=== PATIENT | male | born 1945 | race Caucasian/White ===

== ENCOUNTER 2022-08-23 15:46 | Inpatient (IN) | payer OTHER ==
[~2022-08-23] VITALS: Ht 193 cm; Wt 109.1 kg
[2022-08-23 16:31] LABS: BASOPHILS # (AUTO) 0.1 X10'3 (0-0.2); BASOPHILS % (AUTO) 1.2 % (0-1); EOSINOPHILS # (AUTO) 0.3 X10'3 (0-0.9); EOSINOPHILS % (AUTO) 4.5 % (0-6); HEMOGLOBIN 12.2 g/dl (14.0-17.9); LYMPHOCYTES # (AUTO) 1.6 X10'3 (1.1-4.8); LYMPHOCYTES % (AUTO) 23.2 % (21-51); MEAN CORPUSCULAR HEMOGLOBIN 29.1 PG (27.0-31.0); MEAN CORPUSCULAR HGB CONC 33.1 g/dL (33.0-36.5); MEAN CORPUSCULAR VOLUME 87.9 FL (78-98); MONOCYTES # (AUTO) 0.5 X10'3 (0-0.9); MONOCYTES % (AUTO) 7.4 % (2-12); NEUTROPHILS # (AUTO) 4.4 X10'3 (1.8-7.7); NEUTROPHILS % (AUTO) 63.7 % (42-75); PLATELET COUNT 240 X10'3 (140-440); RED BLOOD COUNT 4.21 X10'6 (4.70-6.10); RED CELL DISTRIBUTION WIDTH 16.2 % (11.5-14.5); WHITE BLOOD COUNT 6.8 X10'3 (4.5-11.0)
[2022-08-23] MEDS ORDERED: iohexol 350MG/ML 100ml bottle IV ONE (16:32)
--- NOTE | 2022-08-23 16:34 | NUR ---
STROKE NURSE GONSALO TOOK TELEMED FOR NEURO CONSULT FOR PT UPSTAIRS . OKAYED BY [facility] .
[2022-08-23 16:41] LABS: APTT 26 SECONDS (22-32)
[2022-08-23 16:43] LABS: ALANINE AMINOTRANSFERASE 19 U/L (12-78); ALBUMIN 3.9 G/DL (3.4-5.0); ALBUMIN/GLOBULIN RATIO 1.1 (1.1-1.5); ALKALINE PHOSPHATASE 79 IU/L (46-116); ANION GAP 12 (8-16); ASPARTATE AMINO TRANSFERASE 19 U/L (10-37); BILIRUBIN,TOTAL 0.4 MG/DL (0.1-1.0); BLOOD UREA NITROGEN 19 MG/DL (7-18); BUN/CREATININE RATIO 16.2 (10.0-20.0); CALCIUM 9.4 MG/DL (8.5-10.1); CHLORIDE 106 MMOL/L (99-107); CREATININE 1.17 MG/DL (0.60-1.10); GLUCOSE 149 MG/DL (70-104); POTASSIUM 3.4 MMOL/L (3.5-5.1); SODIUM 143 MMOL/L (135-145); TOTAL CARBON DIOXIDE 24.8 MMOL/L (24-32); TOTAL PROTEIN 7.3 G/DL (6.4-8.2); eGFR 60 ML/MIN
[2022-08-23] MEDS ORDERED: nitroGLYCERIN 0.4mg/hour patch TD ONE (17:10)
[2022-08-23] MEDS ORDERED: furosemide 10 MG/1 ML 10ml inj IV ONE (17:15)
--- NOTE | 2022-08-23 17:24 | NUR ---
FAVIAN JAUREGUI HAS BEEN ASKED TO START THE PRE AUTH PROCESS WITH MOSCOW DUE TO PT BEING A MOSCOW PT.
[2022-08-23] MEDS ORDERED: aspirin 81mg tab.chew PO ONE (17:30)
--- NOTE | 2022-08-23 18:47 | NUR ---
nitro patch from right shoulder removed per MD.
--- NOTE | 2022-08-23 20:17 | NUR ---
NOTIFIED DR ARVIZU OF PT BP 214/114 NO NEW ORDERS AT THIS TIME
[2022-08-23] MEDS ORDERED: temazepam 15mg capsule PO PRN (21:00)
[2022-08-23] MEDS: morphine 2 MG/ML inj. syringe IV PRN (22:05)
[2022-08-23] MEDS ORDERED: acetaminophen 325mg tablet PO PRN ×2 (23:35)
[2022-08-23] MEDS ORDERED: ondansetron 4mg rapidly disintigrating tab PO PRN (23:35)
[2022-08-23] MEDS ORDERED: mag hydrox/Alum hydrox/simeth 30ml oral suspension PO PRN (23:35)
[2022-08-23] MEDS ORDERED: magnesium hydroxide 30ml (MOM) UD suspension PO PRN (23:35)
[2022-08-23] MEDS ORDERED: morphine 2 MG/ML inj. syringe IV PRN (23:35)
[2022-08-23] MEDS ORDERED: ondansetron/PF 4mg/2ml inj IV PRN (23:35)
[2022-08-23] MEDS ORDERED: diphenhydrAMINE 25mg capsule PO PRN (23:35)
[2022-08-23] MEDS ORDERED: diphenhydrAMINE 50 mg/ml inj IV PRN (23:35)
[2022-08-23] MEDS ORDERED: HYDROcodone/acetaminophen 10/325mg tab PO PRN (23:35)
[2022-08-23] MEDS ORDERED: acetaminophen 650mg rectal suppository RC PRN (23:35)
[2022-08-23] MEDS ORDERED: bisacodyl 10mg suppository rectal RC PRN (23:35)
[2022-08-23] MEDS ORDERED: HYDROcodone/acetaminophen 5mg/325mg tablet PO PRN (23:35)
[2022-08-24 00:01] LABS: HEMOGLOBIN A1C 6.3 % (4.5-6.2)
[2022-08-24 00:06] LABS: APTT 26 SECONDS (22-32)
[2022-08-24 00:08] LABS: MAGNESIUM 1.9 MG/DL (1.5-2.4)
[2022-08-24] MEDS: morphine 2 MG/ML inj. syringe IV PRN (02:37)
[2022-08-24 03:00] VITALS: BP 175/91
[2022-08-24] MEDS ORDERED: OMEP20CA16 PO (03:05)
[2022-08-24] MEDS ORDERED: GABA300C PO (03:05)
[2022-08-24] MEDS ORDERED: FLO0.4C PO (03:05)
[2022-08-24] MEDS ORDERED: BISO10TA16 PO (03:05)
[2022-08-24] MEDS ORDERED: ROSU40TA22 PO (03:05)
[2022-08-24] MEDS ORDERED: TRAZ-256 PO (03:05)
[2022-08-24] MEDS: normal saline 1000ml 1,000 ML IV SCH (03:25)
[2022-08-24 06:28] VITALS: BP 189/101
--- NOTE | 2022-08-24 06:30 | NUR ---
Problems reprioritized. Patient report given, questions answered & plan of care reviewed with WINNIE Paul.
--- NOTE | 2022-08-24 06:35 | NUR ---
Patient in room ORTHO 4018. I have received report from Zahira Miranda and had the opportunity to ask questions and assume patient care.
[2022-08-24] MEDS ORDERED: pantoprazole 40mg Tablet.DR PO SCH (07:30)
[2022-08-24 07:45] LABS: BASOPHILS # (AUTO) 0.1 X10'3 (0-0.2); EOSINOPHILS # (AUTO) 0.1 X10'3 (0-0.9); EOSINOPHILS % (AUTO) 1.6 % (0-6); HEMATOCRIT 39.4 % (42.0-52.0); HEMOGLOBIN 13.2 g/dl (14.0-17.9); LYMPHOCYTES # (AUTO) 1.1 X10'3 (1.1-4.8); LYMPHOCYTES % (AUTO) 14.8 % (21-51); MEAN CORPUSCULAR HEMOGLOBIN 29.3 PG (27.0-31.0); MEAN CORPUSCULAR HGB CONC 33.4 g/dL (33.0-36.5); MEAN CORPUSCULAR VOLUME 87.7 FL (78-98); MEAN PLATELET VOLUME 7.8 FL (7.4-10.4); MONOCYTES # (AUTO) 0.6 X10'3 (0-0.9); MONOCYTES % (AUTO) 7.9 % (2-12); NEUTROPHILS # (AUTO) 5.7 X10'3 (1.8-7.7); NEUTROPHILS % (AUTO) 74.7 % (42-75); PLATELET COUNT 230 X10'3 (140-440); RED BLOOD COUNT 4.49 X10'6 (4.70-6.10); RED CELL DISTRIBUTION WIDTH 15.7 % (11.5-14.5); WHITE BLOOD COUNT 7.6 X10'3 (4.5-11.0)
[2022-08-24 08:00] LABS: ALANINE AMINOTRANSFERASE 19 U/L (12-78); ALBUMIN 4.1 G/DL (3.4-5.0); ALBUMIN/GLOBULIN RATIO 1.1 (1.1-1.5); ALKALINE PHOSPHATASE 84 IU/L (46-116); ANION GAP 13 (8-16); ASPARTATE AMINO TRANSFERASE 29 U/L (10-37); BILIRUBIN,TOTAL 0.5 MG/DL (0.1-1.0); BLOOD UREA NITROGEN 19 MG/DL (7-18); BUN/CREATININE RATIO 17.8 (10.0-20.0); CALCIUM 9.8 MG/DL (8.5-10.1); CHLORIDE 104 MMOL/L (99-107); CHOL/HDL RATIO 2.7 (0.00-4.99); CHOLESTEROL 149 MG/DL (0-200); CREATININE 1.07 MG/DL (0.60-1.10); GLUCOSE 148 MG/DL (70-104); HDL CHOLESTEROL 55 MG/DL (35-60); LDL CHOLESTEROL 74 MG/DL (50-100); POTASSIUM 3.1 MMOL/L (3.5-5.1); SODIUM 142 MMOL/L (135-145); TOTAL CARBON DIOXIDE 24.9 MMOL/L (24-32); TOTAL PROTEIN 7.8 G/DL (6.4-8.2); TRIGLYCERIDES 118 MG/DL (20-135); eGFR 67 ML/MIN
[2022-08-24] MEDS ORDERED: atorvastatin 20mg tablet PO SCH (08:00)
[2022-08-24] MEDS: docusate sod 100mg capsule PO SCH ×2 (08:00→20:13)
[2022-08-24] MEDS: aspirin 81mg, enteric-coated 1 TAB TABLET.DR PO SCH (08:13)
[2022-08-24] MEDS: heparin, porcine 5000 units/ml vial SQ SCH ×2 (08:14→20:13)
[2022-08-24 10:00] VITALS: BP 169/95
[2022-08-24] MEDS ORDERED: pneumococcal 23-VAL P-sac vacc 25 mcg/0.5ml vial IMVAC ONE (10:00)
[2022-08-24] MEDS ORDERED: magnesium Cl slow-release 64mg tablet PO PRN (11:25)
[2022-08-24] MEDS ORDERED: magnesium 2GM in 50ml NS 50 ML IV PRN (11:25)
[2022-08-24] MEDS ORDERED: potassium Cl 20 mEq SR tablet PO PRN (11:25)
[2022-08-24] MEDS ORDERED: potassium Cl 40MEQ/1/2NS 520ml 520 ML IV PRN (11:25)
[2022-08-24] MEDS ORDERED: magnesium 4gm in 100ml NS 100 ML IV PRN (11:25)
[2022-08-24] MEDS: potassium Cl 20 mEq SR tablet PO PRN ×3 (11:30→20:16)
[2022-08-24] MEDS: gabapentin 300mg capsule PO SCH ×2 (14:41→20:14)
[2022-08-24 18:00] VITALS: BP 159/102
--- NOTE | 2022-08-24 18:14 | NUR ---
Problems reprioritized. Patient report given, questions answered & plan of care reviewed with Zahira Miranda
[2022-08-24] MEDS: K and/or MAG REPLACEMENT MC SCH (19:09)
[2022-08-24] MEDS: tamsulosin 0.4mg capsule PO SCH (20:13)
[2022-08-24] MEDS: traZODone 50mg tablet PO SCH (20:14)
[2022-08-24 22:00] VITALS: BP 163/100
[2022-08-25 02:00] VITALS: BP 179/104
[2022-08-25 06:00] VITALS: BP 129/93
--- NOTE | 2022-08-25 06:18 | NUR ---
Problems reprioritized. Patient report given, questions answered & plan of care reviewed with GENARO Morales.
--- NOTE | 2022-08-25 06:30 | NUR ---
Patient in room ORTHO 4015. I have received report from Zahira ZHOU and had the opportunity to ask questions and assume patient care.
[2022-08-25 07:08] LABS: ALANINE AMINOTRANSFERASE 16 U/L (12-78); ALBUMIN 3.7 G/DL (3.4-5.0); ALKALINE PHOSPHATASE 78 IU/L (46-116); ANION GAP 13 (8-16); ASPARTATE AMINO TRANSFERASE 29 U/L (10-37); BILIRUBIN,TOTAL 0.5 MG/DL (0.1-1.0); BLOOD UREA NITROGEN 26 MG/DL (7-18); BUN/CREATININE RATIO 23.2 (10.0-20.0); CALCIUM 9.6 MG/DL (8.5-10.1); CHLORIDE 106 MMOL/L (99-107); CREATININE 1.12 MG/DL (0.60-1.10); GLUCOSE 141 MG/DL (70-104); POTASSIUM 3.6 MMOL/L (3.5-5.1); SODIUM 144 MMOL/L (135-145); TOTAL PROTEIN 7.3 G/DL (6.4-8.2); eGFR 64 ML/MIN
[2022-08-25 07:12] LABS: BASOPHILS # (AUTO) 0.1 X10'3 (0-0.2); BASOPHILS % (AUTO) 1.3 % (0-1); EOSINOPHILS # (AUTO) 0.1 X10'3 (0-0.9); HEMATOCRIT 38.6 % (42.0-52.0); LYMPHOCYTES # (AUTO) 1.7 X10'3 (1.1-4.8); LYMPHOCYTES % (AUTO) 21.2 % (21-51); MEAN CORPUSCULAR HEMOGLOBIN 29.3 PG (27.0-31.0); MEAN CORPUSCULAR HGB CONC 33.5 g/dL (33.0-36.5); MEAN CORPUSCULAR VOLUME 87.3 FL (78-98); MEAN PLATELET VOLUME 7.7 FL (7.4-10.4); MONOCYTES # (AUTO) 0.8 X10'3 (0-0.9); MONOCYTES % (AUTO) 9.3 % (2-12); NEUTROPHILS # (AUTO) 5.5 X10'3 (1.8-7.7); NEUTROPHILS % (AUTO) 67.2 % (42-75); PLATELET COUNT 240 X10'3 (140-440); RED BLOOD COUNT 4.43 X10'6 (4.70-6.10); RED CELL DISTRIBUTION WIDTH 16.3 % (11.5-14.5); WHITE BLOOD COUNT 8.1 X10'3 (4.5-11.0)
[2022-08-25] MEDS: K and/or MAG REPLACEMENT MC SCH ×2 (07:25→20:00)
[2022-08-25] MEDS: docusate sod 100mg capsule PO SCH ×2 (07:41→20:50)
[2022-08-25] MEDS: pantoprazole 40mg Tablet.DR PO SCH (07:41)
[2022-08-25] MEDS: heparin, porcine 5000 units/ml vial SQ SCH ×2 (07:42→20:50)
[2022-08-25] MEDS: aspirin 81mg, enteric-coated 1 TAB TABLET.DR PO SCH (07:42)
[2022-08-25] MEDS: atorvastatin 20mg tablet PO SCH (07:42)
[2022-08-25] MEDS: gabapentin 300mg capsule PO SCH ×3 (07:42→20:50)
[2022-08-25 18:00] VITALS: BP 168/105
--- NOTE | 2022-08-25 18:02 | NUR ---
I agree with all BUILDING ASSOCIATE Messi mcfarland documentations and medication administrations.
[2022-08-25] MEDS: tamsulosin 0.4mg capsule PO SCH (20:50)
[2022-08-25] MEDS: traZODone 50mg tablet PO SCH (20:50)
[2022-08-25 22:00] VITALS: BP 171/103
[2022-08-25] MEDS: morphine 2 MG/ML inj. syringe IV PRN (23:22)
[2022-08-25] MEDS ORDERED: clopidogrel 300mg tablet PO ONE (23:25)
[2022-08-25] MEDS: normal saline 1000ml 1,000 ML IV SCH (23:35)
[2022-08-26] VITALS (9 sets, daily range): BP systolic 165–207; BP diastolic 91–124
[2022-08-26] MEDS ORDERED: CABE0.5T2 PO (00:24)
--- NOTE | 2022-08-26 06:22 | NUR ---
Patient in room ORTHO 4015. I have received report from jacquelin cannon and had the opportunity to ask questions and assume patient care.
--- NOTE | 2022-08-26 06:31 | NUR ---
Problems reprioritized. Patient report given, questions answered & plan of care reviewed with kassandra Graham.
[2022-08-26 06:40] LABS: BASOPHILS # (AUTO) 0.1 X10'3 (0-0.2); BASOPHILS % (AUTO) 1.3 % (0-1); EOSINOPHILS # (AUTO) 0.1 X10'3 (0-0.9); EOSINOPHILS % (AUTO) 1.1 % (0-6); HEMATOCRIT 39.3 % (42.0-52.0); HEMOGLOBIN 13.3 g/dl (14.0-17.9); LYMPHOCYTES # (AUTO) 1.4 X10'3 (1.1-4.8); LYMPHOCYTES % (AUTO) 16.5 % (21-51); MEAN CORPUSCULAR HEMOGLOBIN 29.7 PG (27.0-31.0); MEAN CORPUSCULAR HGB CONC 33.9 g/dL (33.0-36.5); MEAN CORPUSCULAR VOLUME 87.8 FL (78-98); MEAN PLATELET VOLUME 7.4 FL (7.4-10.4); MONOCYTES % (AUTO) 11.4 % (2-12); NEUTROPHILS % (AUTO) 69.7 % (42-75); PLATELET COUNT 238 X10'3 (140-440); RED BLOOD COUNT 4.47 X10'6 (4.70-6.10); RED CELL DISTRIBUTION WIDTH 16.3 % (11.5-14.5); WHITE BLOOD COUNT 8.6 X10'3 (4.5-11.0)
[2022-08-26 06:57] LABS: ALANINE AMINOTRANSFERASE 13 U/L (12-78); ALBUMIN 3.6 G/DL (3.4-5.0); ALKALINE PHOSPHATASE 81 IU/L (46-116); ANION GAP 13 (8-16); ASPARTATE AMINO TRANSFERASE 19 U/L (10-37); BILIRUBIN,TOTAL 0.7 MG/DL (0.1-1.0); BLOOD UREA NITROGEN 32 MG/DL (7-18); BUN/CREATININE RATIO 29.6 (10.0-20.0); CALCIUM 9.5 MG/DL (8.5-10.1); CHLORIDE 106 MMOL/L (99-107); CREATININE 1.08 MG/DL (0.60-1.10); GLUCOSE 146 MG/DL (70-104); POTASSIUM 3.6 MMOL/L (3.5-5.1); SODIUM 143 MMOL/L (135-145); TOTAL CARBON DIOXIDE 24.5 MMOL/L (24-32); TOTAL PROTEIN 7.3 G/DL (6.4-8.2); eGFR 66 ML/MIN
[2022-08-26] MEDS: pantoprazole 40mg Tablet.DR PO SCH (07:27)
[2022-08-26] MEDS: aspirin 81mg, enteric-coated 1 TAB TABLET.DR PO SCH (07:28)
[2022-08-26] MEDS: docusate sodium 100mg/10ml UD cup PO SCH ×2 (07:28→18:54)
[2022-08-26] MEDS: atorvastatin 20mg tablet PO SCH (07:28)
[2022-08-26] MEDS: gabapentin 300mg capsule PO SCH ×3 (07:29→18:57)
[2022-08-26] MEDS: clopidogrel 75mg tablet PO SCH (07:30)
[2022-08-26] MEDS: heparin, porcine 5000 units/ml vial SQ SCH ×2 (07:41→19:58)
[2022-08-26] MEDS: K and/or MAG REPLACEMENT MC SCH ×2 (07:59→20:00)
--- NOTE | 2022-08-26 08:06 | NUR ---
Page Accepted Message: [id number] b christy, pt seems to be regressing, he couldn't say many words today compared to what i got in report. he also is having more difficulty swallowing speech said he needs to be NPO now i am going to put the order in. elvi
--- NOTE | 2022-08-26 10:16 | NUR ---
paged dr carreno again via call and paged ervin stroke nurse. talked with damian stroke nurse this am when i paged ev earlier. waiting for responses.
--- NOTE | 2022-08-26 10:25 | NUR ---
Page Accepted promotional table spacer Message: [id number] manjeet harrison, spoke with stroke nurse, pt possible needs another Neuro consult and i dont know if you wou ld like to repeat scans. please let me know. elvi [phone]
--- NOTE | 2022-08-26 12:06 | NUR ---
talked to son Mega about pts deteriorating state and how he has been for me today so far, he understands and is fully aware. stated he had to get some treatment done and would most likely be back up unless something changes with his father. informed him that he is getting another neurology work up and scans done. dr should be rounding soon and i will tell him to give son a call to review any results or changes.
[2022-08-26] MEDS ORDERED: dextrose 5%-normal saline 1,000 ML IV SCH (12:30)
[2022-08-26] MEDS ORDERED: normal saline 1000ml 1,000 ML IV ONE (14:00)
--- NOTE | 2022-08-26 14:09 | NUR ---
per dr carreno wants the pt to have a bolus
--- NOTE | 2022-08-26 14:41 | NUR ---
Page Accepted Message: [id number] manjeet harrison pt son was calling to see what neurologist had said. if you could call him please [phone]. thanks
--- NOTE | 2022-08-26 14:48 | NUR ---
1000 saline bolus started by Lupe Wang RN
--- NOTE | 2022-08-26 16:17 | NUR ---
Page Accepted Message: [id number] manjeet harrison, pt respirations have been increasing since this am at 10 am they were 28, current respirations 35-40s and more labored, . elvi [phone]
--- NOTE | 2022-08-26 17:59 | NUR ---
per dr carreno wants a chest xray, ABGs, 2 L NC, and the pt to be saline locked and i put fluids on hold.
[2022-08-26] MEDS: tamsulosin 0.4mg capsule PO SCH (18:54)
[2022-08-26] MEDS: traZODone 50mg tablet PO SCH (18:54)
[2022-08-26 19:10] LABS: ABG BASE EXCESS 0.3 mmol/L (-2.0-2.0); ABG PCO2 (T) 31.4 mmHg (35.0-48.0); ABG PO2 (T) 69.9 mmHg (75.0-100.0); ALLEN'S TEST Modified; FCOHb 0.7 % (0.0-3.9); FLOW 2 L/min; FMetHb 0.2 % (0.0-1.5); FO2Hb 93.2 % (94-97); PATIENT TEMPERATURE 36.8; TOTAL HEMOGLOBIN 13.8 G/dl (14.0-17.9)
[2022-08-26] MEDS: morphine 2 MG/ML inj. syringe IV PRN (19:53)
[2022-08-26] MEDS ORDERED: LORazepam 2 mg/ml vial IV ONE (20:02)
--- NOTE | 2022-08-26 20:06 | NUR ---
charge nurse talked with dr carreno, it is ok to give pt 2 mg of morphine thats in the prn pain med list and a one time dose of Ativan was ordered if needed.
[2022-08-26] MEDS ORDERED: hydrALAZINE 20mg/ml inj. IV PRN (22:25)
[2022-08-27] VITALS (22 sets, daily range): BP systolic 138–190; BP diastolic 89–116
--- NOTE | 2022-08-27 00:53 | NUR ---
Problems reprioritized. Patient report given, questions answered & plan of care reviewed with warner cannon.
[2022-08-27] MEDS: niCARDipine-NS 40mg/200ml IVPB 200 ML IV SCH ×2 (01:51→08:26)
[2022-08-27] MEDS: morphine 2 MG/ML inj. syringe IV PRN ×6 (02:03→23:43)
[2022-08-27] MEDS ORDERED: diazepam inj 5 MG/ML inj. IV PRN (02:20)
--- NOTE | 2022-08-27 06:00 | NUR ---
Patient in room U 3026. I have received report from Gurinder ZHOU and had the opportunity to ask questions and assume patient care. Pt RR 60. O2 sat 92 on 4L simple mask . mouth breathing. Son is on his way from [place]. levi lissette. Addendum: 08/27/22 at 0641 by Ariela Courtney RN Amended: Links added.
--- NOTE | 2022-08-27 06:19 | NUR ---
Problems reprioritized. Patient report given, questions answered & plan of care reviewed with Ariela ZHOU.
[2022-08-27 06:53] LABS: ALANINE AMINOTRANSFERASE 17 U/L (12-78); ALBUMIN 3.5 G/DL (3.4-5.0); ALBUMIN/GLOBULIN RATIO 0.9 (1.1-1.5); ALKALINE PHOSPHATASE 82 IU/L (46-116); ANION GAP 13 (8-16); ASPARTATE AMINO TRANSFERASE 30 U/L (10-37); BILIRUBIN,TOTAL 0.8 MG/DL (0.1-1.0); BLOOD UREA NITROGEN 29 MG/DL (7-18); BUN/CREATININE RATIO 25.9 (10.0-20.0); CALCIUM 9.6 MG/DL (8.5-10.1); CHLORIDE 107 MMOL/L (99-107); CREATININE 1.12 MG/DL (0.60-1.10); GLUCOSE 184 MG/DL (70-104); POTASSIUM 3.6 MMOL/L (3.5-5.1); SODIUM 143 MMOL/L (135-145); TOTAL CARBON DIOXIDE 23.4 MMOL/L (24-32); TOTAL PROTEIN 7.6 G/DL (6.4-8.2); eGFR 64 ML/MIN
[2022-08-27 07:08] LABS: BASOPHILS # (AUTO) 0.1 X10'3 (0-0.2); BASOPHILS % (AUTO) 0.7 % (0-1); EOSINOPHILS % (AUTO) 0.2 % (0-6); HEMATOCRIT 41.4 % (42.0-52.0); HEMOGLOBIN 13.9 g/dl (14.0-17.9); MEAN CORPUSCULAR HEMOGLOBIN 29.7 PG (27.0-31.0); MEAN CORPUSCULAR HGB CONC 33.6 g/dL (33.0-36.5); MEAN CORPUSCULAR VOLUME 88.5 FL (78-98); MEAN PLATELET VOLUME 7.6 FL (7.4-10.4); MONOCYTES # (AUTO) 1.3 X10'3 (0-0.9); MONOCYTES % (AUTO) 11.4 % (2-12); NEUTROPHILS # (AUTO) 8.6 X10'3 (1.8-7.7); NEUTROPHILS % (AUTO) 78.7 % (42-75); PLATELET COUNT 242 X10'3 (140-440); RED BLOOD COUNT 4.67 X10'6 (4.70-6.10); RED CELL DISTRIBUTION WIDTH 16.5 % (11.5-14.5)
[2022-08-27] MEDS: pantoprazole 40mg Tablet.DR PO SCH (07:30)
[2022-08-27] MEDS: K and/or MAG REPLACEMENT MC SCH (08:00)
[2022-08-27] MEDS: atorvastatin 20mg tablet PO SCH (08:00)
[2022-08-27] MEDS: clopidogrel 75mg tablet PO SCH (08:00)
[2022-08-27] MEDS: gabapentin 300mg capsule PO SCH (08:00)
[2022-08-27] MEDS: aspirin 81mg, enteric-coated 1 TAB TABLET.DR PO SCH (08:00)
[2022-08-27] MEDS: docusate sodium 100mg/10ml UD cup PO SCH (08:00)
[2022-08-27] MEDS: heparin, porcine 5000 units/ml vial SQ SCH (08:32)
--- NOTE | 2022-08-27 09:57 | NUR ---
Noted pt with a low Grzegorz of 9. Per EMR no edema or wounds. Pt NPO since 08/26 per car. No appropriate nutrition intervention at this time. Will continue to follow. Addendum: 08/27/22 at [address] Amended: Links added.
[2022-08-27] MEDS ORDERED: morphine 10mg/0.5ml (conc. morphine) oral syringe PO PRN (12:15)
[2022-08-27] MEDS ORDERED: LORazepam 2 mg/ml vial IV PRN (12:15)
--- NOTE | 2022-08-27 12:20 | NUR ---
WOC in to see patient for low Grzegorz score. The patient is awaiting his son. He will most likely be moved to comfort care and is really not stable to be turned or moved at this time. WOC team will follow up tomorrow w/ nursing if they would like wound nurse to follow or not.
--- NOTE | 2022-08-27 12:31 | NUR ---
Page Accepted promotional table spacer Message: [id number] BRANDI. SON HAS ARRIVED AND IS AT BEDSIDE. VALERIA [id number] Custom Responses: promotional table spacer Transaction number: [id number]
--- NOTE | 2022-08-27 14:18 | NUR ---
Message: [id number] Dionne. Pain meds and Ativan dose/times appears to be inadequate. Pt RR back up to 60's Pt continues to squeeze hand in response to Yes for pain present. Son at bedside. He has the impression you were coming to see him. Ariela WILSON
--- NOTE | 2022-08-27 14:52 | NUR ---
Dr Guthrie at bedside talking with son.
--- NOTE | 2022-08-27 14:58 | NUR ---
DR GALAN GAVE ME ORDERS AT BEDSIDE TO CHANGE PATIENT'S COMFORT CARE MEDS TO AVERY 10MG Q2 PO, MORPHINE TO Q2H IV, AND TO INCREASE ATIVAN IV TO 2MG Q2 HR FOR COMFORT OF THIS CRITICAL PATIENT . RR IS IN 50S AFTER GIVING PATIENT EVERYTHING WE COULD .
[2022-08-27] MEDS: LORazepam 2 mg/ml vial IV PRN ×3 (16:00→22:39)
--- NOTE | 2022-08-27 18:00 | NUR ---
Patient in room PCU 3026. I have received report from Ariela ZHOU and had the opportunity to ask questions and assume patient care.
--- NOTE | 2022-08-27 18:23 | NUR ---
Problems reprioritized. Patient report given, questions answered & plan of care reviewed with Sandra ZHOU. Pt son at bedside. Pt looks comfortable at this time. Addendum: 08/27/22 at 1824 by Ariela Courtney RN Amended: Links added.
[2022-08-28] MEDS: LORazepam 2 mg/ml vial IV PRN ×9 (01:16→20:02)
[2022-08-28] MEDS: morphine 2 MG/ML inj. syringe IV PRN ×8 (02:50→20:03)
[2022-08-28 03:05] VITALS: BP 129/89
[2022-08-28 06:00] VITALS: BP 123/77
--- NOTE | 2022-08-28 06:18 | NUR ---
Patient in room PCU 3026. I have received report from Sandra ZHOU and had the opportunity to ask questions and assume patient care. Pt resting. Son at bedside. Addendum: 08/28/22 at 0630 by Ariela Courtney RN Amended: Links added.
--- NOTE | 2022-08-28 06:36 | NUR ---
Problems reprioritized. Patient report given, questions answered & plan of care reviewed with Ariela ZHOU.
--- NOTE | 2022-08-28 07:58 | NUR ---
Wound care note- confirmed this patient in now DNR, on comfort care and actively dying. Wound care will not need to follow at this time.
--- NOTE | 2022-08-28 09:55 | NUR ---
son states he feels his dad is in distress. Roxanol po given. RR 56
[2022-08-28] MEDS: morphine 10mg/0.5ml (conc. morphine) oral syringe PO PRN ×4 (09:58→17:06)
--- NOTE | 2022-08-28 13:52 | NUR ---
[facility] contacted to inform them of pt condition. info faxed to them regarding pt out of town burial arrangement. pt son continues to stay at bedside, holding dads hand. Son wanting to keep pt as comfortable as possible with meds very 2h.
--- NOTE | 2022-08-28 15:03 | NUR ---
family visiting from [place]. all requesting pt receive pain meds for discomfort.
--- NOTE | 2022-08-28 15:50 | NUR ---
family remains at bedside. Pt RR remains 55 and above.
--- NOTE | 2022-08-28 16:35 | NUR ---
Noted pt now DNR w/ comfort care per EMR. LB 08/22. Will continue to follow. Rec: 1. bowel care per rx Addendum: 08/28/22 at [address] Amended: Links added.
[2022-08-28 18:00] VITALS: BP 132/76
--- NOTE | 2022-08-28 18:09 | NUR ---
Problems reprioritized. Patient report given, questions answered & plan of care reviewed with Justino ZHOU.Pedro contreras at bedside.. Addendum: 08/28/22 at 1810 by Ariela Courtney RN Amended: Links added.
--- NOTE | 2022-08-29 00:09 | NUR ---
RN IS TO DOCUMENT YES TO ALL APPLICABLE AREAS Pronouncement of : 1. Time Physician Notified:[id number] 2. Date of :08/28/2022 3. Time of : 2114 4. DNR/Withdraw life support documented:yes 5. Monitor strip has been placed on chart:yes 6. Assessment process is of one-minute duration and includes following criteria: a) Patient is unresponsive to all stimuli: yes b) Pupils fixed and non-reactive: yes c) Auscultation of precordium reveals absence of heart tones:yes d) Auscultation of lungs reveals absence of breath sounds:yes e) Absence of blood pressure / all vital signs:yes f) QRS complexes are not present on monitor / EKG strip:yes g) Pacer spikes without capture:n/a 4. Comments:
--- NOTE | 2022-08-29 00:14 | NUR ---
patients family has belongings. tamiko picked patient up at 2310.
== END 2022-08-28 21:15 | DRG 64 ==
LOC: ER 15:47 → ED HOLD 23:39 → ORTHO 4S 08-24 02:40 → PCU 3S 08-27 01:37
PROVIDERS: ADMIT Family Medicine; ATTEND Family Medicine
PROC: B3251ZZ Computerized Tomography (CT Scan) of Bilateral Common Carotid Arteries using Low Osmolar Contrast (ICD-10-PCS; 2022-08-23)
PROC: B32G1ZZ Computerized Tomography (CT Scan) of Bilateral Vertebral Arteries using Low Osmolar Contrast (ICD-10-PCS; 2022-08-23)
PROC: B32R1ZZ Computerized Tomography (CT Scan) of Intracranial Arteries using Low Osmolar Contrast (ICD-10-PCS; 2022-08-23)
PROC: B3281ZZ Computerized Tomography (CT Scan) of Bilateral Internal Carotid Arteries using Low Osmolar Contrast (ICD-10-PCS; 2022-08-23)
PROC: 3E0234Z Introduction of Serum, Toxoid and Vaccine into Muscle, Percutaneous Approach (ICD-10-PCS; principal; 2022-08-24)
DX: I63.29 Cerebral infarction due to unspecified occlusion or stenosis of other precerebral arteries (principal); I50.33 Acute on chronic diastolic (congestive) heart failure; G45.0 Vertebro-basilar artery syndrome; Z51.5 Encounter for palliative care; Z66 Do not resuscitate; R06.82 Tachypnea, not elsewhere classified; R26.81 Unsteadiness on feet; W18.39XA Other fall on same level, initial encounter; R47.81 Slurred speech; E78.5 Hyperlipidemia, unspecified; R29.707 NIHSS score 7; E87.6 Hypokalemia; N40.0 Benign prostatic hyperplasia without lower urinary tract symptoms; G62.9 Polyneuropathy, unspecified; K21.9 Gastro-esophageal reflux disease without esophagitis; G89.4 Chronic pain syndrome; M54.9 Dorsalgia, unspecified; I11.0 Hypertensive heart disease with heart failure; I25.10 Atherosclerotic heart disease of native coronary artery without angina pectoris; Z95.5 Presence of coronary angioplasty implant and graft; Z23 Encounter for immunization; Z79.82 Long term (current) use of aspirin; Z79.899 Other long term (current) drug therapy; Y93.89 Activity, other specified; Y92.89 Other specified places as the place of occurrence of the external cause; Y99.8 Other external cause status
CPT/HCPCS: 36415; 36600; 70450; 70551; 71045; 80053; 80061; 82803; 82948; 83036; 83605; 83735; 83880; 84100; 84145; 84443; 85018; 85025; 85610; 85730; 87040; 87081; 90732; 92508; 92616; 93306; 97161; 97530; 99291; A4349; A4615; A4620; G0378; J0360; J1644; J1940; J2060; J2270; J3360; J3490; J7030; J7042; Q9967